=== PATIENT | female | born 1975 | race American Indian/Alaskan Native ===

== ENCOUNTER 2018-10-27 09:29 | Emergency (ER) | payer SELFPAY ==
[2018-10-27] MEDS ORDERED: TORADOL IM ONE (11:03)
--- NOTE | 2018-10-27 11:06 | Emergency Department Report ---
ED Back Pain/Injury HPI - General Chief Complaint: Pain General Stated Complaint: LT SIDE PAIN/TOOTHACHE Time Seen by Provider: 10/27/18 10:43 Source: patient Limitations: No Limitations - History of Present Illness Initial Comments: Ms. Manning is a 42 yo female with hx of HTN and asthma who presents with toothache from fracture tooth at the left upper front of mouth. She has has left flank pain. Worse with movement. Worse with laying on the region. No fever. No dyspnea. Works at [employer]. MD Complaint: back pain -: Gradual, days(s) (1) Similar Symptoms Previously: No Radiation: none Severity: moderate Quality: dull, aching Consistency: constant Worsens With: movement - Related Data Previous Rx's Medication Instructions Recorded Last Taken Type Cyclobenzaprine [Flexeril] 10 mg PO TID PRN #20 tablet 10/27/18 Unknown Rx HYDROcodone/APAP 5-325 [[place] 1 each PO Q6HR PRN #10 tablet 10/27/18 Unknown Rx 5/325] Ibuprofen [Motrin 800 MG tab] 800 mg PO TID 5 Days #15 tablet 10/27/18 Unknown Rx Penicillin V Potassium 500 mg PO TID 7 Days #21 tablet 10/27/18 Unknown Rx Allergies Allergy/AdvReac Type Severity Reaction Status Date / Time mushroom Allergy Hives Verified 10/27/18 09:32 ED Review of Systems ROS: Stated complaint: LT SIDE PAIN/TOOTHACHE Other details as noted in HPI Comment: All other systems reviewed and negative Constitutional: denies: fever, malaise Cardiovascular: denies: chest pain ED Past Medical Hx - Past Medical History Previous Medical History?: Yes Hx Hypertension: Yes Hx Liver Disease: Yes Hx Asthma: Yes - Surgical History Additional Surgical History: tubal ligation, lumpectomy - Social History Smoking Status: Current Every Day Smoker Substance Use Type: None - Medications Home Medications: Home Medications Medication Instructions Recorded Confirmed Last Taken Type Cyclobenzaprine [Flexeril] 10 mg PO TID PRN #20 tablet 10/27/18 Unknown Rx HYDROcodone/APAP 5-325 [[place] 1 each PO Q6HR PRN #10 tablet 10/27/18 Unknown Rx 5/325] Ibuprofen [Motrin 800 MG tab] 800 mg PO TID 5 Days #15 tablet 10/27/18 Unknown Rx Penicillin V Potassium 500 mg PO TID 7 Days #21 tablet 10/27/18 Unknown Rx ED Physical Exam - General Limitations: No Limitations General appearance: alert, in no apparent distress - Head Head exam: Present: atraumatic, normocephalic - Eye Eye exam: Present: normal appearance - ENT ENT exam: Present: mucous membranes moist - Neck Neck exam: Present: normal inspection, full ROM - Respiratory Respiratory exam: Present: normal lung sounds bilaterally. Absent: respiratory distress, wheezes, rales, rhonchi - Cardiovascular Cardiovascular Exam: Present: regular rate, normal rhythm, normal heart sounds. Absent: systolic murmur, diastolic murmur, rubs, gallop - GI/Abdominal GI/Abdominal exam: Present: soft, normal bowel sounds. Absent: distended, guarding, rebound - Extremities Exam Extremities exam: Present: normal inspection - Back Exam Back exam: Present: normal inspection - Neurological Exam Neurological exam: Present: alert, oriented X3 - Psychiatric Psychiatric exam: Present: normal affect, normal mood - Skin Skin exam: Present: warm, dry, intact, normal color. Absent: rash ED Course Vital Signs 10/27/18 09:37 Temperature 98.9 F Pulse Rate 117 H Respiratory 18 Rate Blood Pressure 185/97 O2 Sat by Pulse 95 Oximetry ED Medical Decision Making - Lab Data Result diagrams: 10/27/18 11:09 10/27/18 11:09 - Radiology Data Radiology results: report reviewed interpreted by me: VQ scan low probability for pulmonary embolism - Medical Decision Making Mrs. Manning presents with toothache due to fracture and cavity. No evidence of dental abscess or facial cellulitis. As a precaution will provide empiric antibiotic therapy with penicillin. Musculoskeletal back pain left pain due to new job. 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 Prescribed [place] ibuprofen Flexeril Critical care attestation.: If time is entered above; I have spent that time in minutes in the direct care of this critically ill patient, excluding procedure time. ED Disposition Clinical Impression: Dental caries, Musculoskeletal back pain Disposition: DC- TO HOME OR SELFCARE Is pt being admited?: No Does the pt Need Aspirin: No Condition: Stable Instructions: Low Back Strain (ED), Toothache (ED) Prescriptions: Cyclobenzaprine [Flexeril] 10 mg PO TID PRN #20 tablet PRN Reason: Muscle Spasm Ibuprofen [Motrin 800 MG tab] 800 mg PO TID 5 Days #15 tablet HYDROcodone/APAP 5-325 [[place] 5/325] 1 each PO Q6HR PRN #10 tablet PRN Reason: Pain Penicillin V Potassium 500 mg PO TID 7 Days #21 tablet Referrals: YASH CERVANTES MD [Primary Care Provider] - 3-5 Days
[2018-10-27 11:23] LABS: Bilirubin,Urine SM (Negative); Blood,Urine NEG (Negative); Calcium Oxalate Crystals,Urine 1+; Color,Urine Amber (Yellow); Mucus,Urine 3+ /HPF
[2018-10-27 11:32] LABS: Hematocrit 33.1 % (30.3-42.9); Hemoglobin 10.6 gm/dl (10.1-14.3); Mean Corpuscular HGB Conc 32 % (30-34); Platelet Count 342 K/mm3 (140-440)
[2018-10-27 11:35] LABS: Mean Corpuscular Volume 68 fl (79-97); Red Cell Distribution Width 24.1 % (13.2-15.2)
[2018-10-27 11:41] LABS: Ictotest,Urine Negative (Negative)
--- NOTE | 2018-10-27 11:46 | XRay Report ---
CHEST 2 VIEWS INDICATION: Left back pain, left flank pain for 3 days. COMPARISON: FINDINGS: Support devices: None. Heart: Within normal limits. Lungs/pleura: No acute air space or interstitial disease. No pneumothorax. Additional findings: Minimal thoracic spondylosis. No acute fractures appreciated. IMPRESSION: Unremarkable chest films. Minimal thoracic spondylosis. Signer Name: Silvino Mina Jr, MD Signed: 10/27/2018 11:42 AM Workstation Name: [id number]
[2018-10-27 11:49] LABS: BUN/Creatinine Ratio 17; Blood Urea Nitrogen 10 mg/dL (7-17); Calcium 9.5 mg/dL (8.4-10.2); Hemolysis Index 0
[2018-10-27 12:27] LABS: Anisocytosis 2+; Basophils % (Manual) 0 % (0.0-1.8); Total Cells Counted 100
[2018-10-27 12:28] LABS: Hypochromasia 2+; Ovalocytes Few; Platelet Estimate Consistent w Auto; Target Cells 1+
--- NOTE | 2018-10-27 14:30 | Nuclear Medicine Report ---
VENTILATION PERFUSION PULMONARY SCINTIGRAPHY HISTORY: Posterior chest pain, elevated d-dimer, evaluate for pulmonary embolus COMPARISON: 10/27/2018 chest radiograph. TECHNIQUE: Radiopharmaceutical was inhaled. Tc-99m-MAA was then injected. Ventilation and perfusion images were acquired. RADIOPHARMACEUTICAL: 26.7 mCi of Xe-133 inhaled 3.1 mCi of Tc-99m-MAA injected FINDINGS: VENTILATION: No significant air trapping or defect. PERFUSION: No significant segmental or non-segmental defect. Additional Findings: None. IMPRESSION: 1. Low probability for pulmonary embolism. Signer Name: Silvino Mina Jr, MD Signed: 10/27/2018 2:25 PM Workstation Name: [id number]
[2018-10-27 16:32] VITALS: BP 168/92
== END 2018-10-27 16:20 | disposition home or self-care (01) ==
LOC: ED 09:29
DX: K02.9 Dental caries, unspecified (principal); M54.9 Dorsalgia, unspecified; I10 Essential (primary) hypertension; J45.909 Unspecified asthma, uncomplicated; F17.200 Nicotine dependence, unspecified, uncomplicated; Z98.51 Tubal ligation status
CPT/HCPCS: 36415; 71046; 78582; 80048; 81001; 85007; 85025; 85379; 96372; 99284; A9540; A9558; J1885

== ENCOUNTER 2019-02-06 18:21 | Emergency (ER) | payer SELFPAY ==
[2019-02-06 19:06] VITALS: BP 225/106
--- NOTE | 2019-02-06 19:07 | Event Note ---
ED Screening Note Date of service: 02/06/19 Time: 19:02 ED Screening Note: This is a 43 y.o. F. that presents to the ER with right hip pain and right sided neck pain s/p fall 2 days ago. Patient states she slipped on the steps outside of her apartment. Not sure of which step she was on. PMH of HTN LMP 02/06/2019 This initial assessment/diagnostic orders/clinical plan/treatment(s) is/are subject to change based on patients health status, clinical progression and re- assessment by fellow clinical providers in the ED. Further treatment and workup at subsequent clinical providers discretion. Patient/guardian urged not to elope from the ED as their condition may be serious if not clinically assessed and managed. Initial orders include: XR right hip
--- NOTE | 2019-02-06 19:58 | XRay Report ---
RIGHT HIP 2 VIEWS INDICATION / CLINICAL INFORMATION: hip pain s/p fall COMPARISON: None available. FINDINGS: BONES / JOINT(S): No acute fracture or subluxation. No significant arthritis. SOFT TISSUES: No significant abnormality. ADDITIONAL FINDINGS: None. Signer Name: Marques Saldaña MD Signed: 02/06/2019 7:54 PM Workstation Name: [id number]
--- NOTE | 2019-02-06 20:59 | Emergency Department Report ---
ED Neck Pain/Injury HPI - General Chief Complaint: Neck Pain/Injury Stated Complaint: SIDE/NECK PAIN Time Seen by Provider: 02/06/19 19:02 Mode of arrival: Ambulatory Limitations: No Limitations - History of Present Illness Initial Comments: 43-year-old female with history of hypertension presents to ED with painful knot behind her right ear times one day. Patient states pain is radiating upward, causing a headache. Patient denies ear pain or scalp infection. Denies sore throat. She reports mild toothache. Denies fever, nausea, vomiting. Patient also states she fell onto her right hip 2 days ago and reports pain from that. Patient did not hit her head at that time. Blood pressure is currently elevated. Patient reports she did not take her blood pressure medicine today, however, assures that she will take it when she gets home. MD Complaint: neck pain -: This morning Radiation: head Severity: moderate Quality: aching Consistency: constant Improves With: immobilization Worsens With: movement of neck, other (palpation) Associated Symptoms: denies: fever Treatments Prior to Arrival: none - Related Data Previous Rx's Medication Instructions Recorded Last Taken Type Cyclobenzaprine [Flexeril] 10 mg PO TID PRN #20 tablet 10/27/18 Unknown Rx HYDROcodone/APAP 5-325 [[place] 1 each PO Q6HR PRN #10 tablet 10/27/18 Unknown Rx 5/325] Ibuprofen [Motrin 800 MG tab] 800 mg PO TID 5 Days #15 tablet 10/27/18 Unknown Rx Penicillin V Potassium 500 mg PO TID 7 Days #21 tablet 10/27/18 Unknown Rx Naproxen [Naprosyn] 500 mg PO BID #20 tablet 02/06/19 Unknown Rx cephALEXin [Keflex] 500 mg PO Q12HR 5 Days #10 cap 02/06/19 Unknown Rx Allergies Allergy/AdvReac Type Severity Reaction Status Date / Time mushroom Allergy Hives Verified 10/27/18 09:32 ED Review of Systems ROS: Stated complaint: SIDE/NECK PAIN Other details as noted in HPI Comment: All other systems reviewed and negative Constitutional: denies: chills, fever ENT: dental pain. denies: ear pain, throat pain Respiratory: denies: cough Gastrointestinal: denies: nausea, vomiting Musculoskeletal: as per HPI Neurological: headache ED Past Medical Hx - Past Medical History Previous Medical History?: Yes Hx Hypertension: Yes Hx Liver Disease: Yes Hx Asthma: Yes - Surgical History Past Surgical History?: Yes Hx Cholecystectomy: Yes Additional Surgical History: tubal ligation, lumpectomy - Social History Smoking Status: Current Every Day Smoker Substance Use Type: None - Medications Home Medications: Home Medications Medication Instructions Recorded Confirmed Last Taken Type Cyclobenzaprine [Flexeril] 10 mg PO TID PRN #20 tablet 10/27/18 Unknown Rx HYDROcodone/APAP 5-325 [[place] 1 each PO Q6HR PRN #10 tablet 10/27/18 Unknown Rx 5/325] Ibuprofen [Motrin 800 MG tab] 800 mg PO TID 5 Days #15 tablet 10/27/18 Unknown Rx Penicillin V Potassium 500 mg PO TID 7 Days #21 tablet 10/27/18 Unknown Rx Naproxen [Naprosyn] 500 mg PO BID #20 tablet 02/06/19 Unknown Rx cephALEXin [Keflex] 500 mg PO Q12HR 5 Days #10 cap 02/06/19 Unknown Rx ED Physical Exam - General Limitations: No Limitations General appearance: alert, in no apparent distress - Head Head exam: Present: atraumatic, normocephalic - Eye Eye exam: Present: normal appearance, EOMI - ENT ENT exam: Present: normal orophraynx, mucous membranes moist, TM's normal bilaterally - Neck Neck exam: Present: normal inspection, other (right postauricular tender lymph node present) - Respiratory Respiratory exam: Present: normal lung sounds bilaterally. Absent: respiratory distress - Cardiovascular Cardiovascular Exam: Present: regular rate, normal rhythm - GI/Abdominal GI/Abdominal exam: Absent: distended - Extremities Exam Extremities exam: Present: normal inspection - Neurological Exam Neurological exam: Present: alert, oriented X3 - Psychiatric Psychiatric exam: Present: normal affect, normal mood - Skin Skin exam: Present: warm, dry, intact, normal color ED Course Vital Signs 02/06/19 19:00 Temperature 98.6 F Pulse Rate 82 Respiratory 14 Rate Blood Pressure 225/106 O2 Sat by Pulse 97 Oximetry Critical care attestation.: If time is entered above; I have spent that time in minutes in the direct care of this critically ill patient, excluding procedure time. ED Disposition Clinical Impression: Lymphadenitis, acute Disposition: DC-01 TO HOME OR SELFCARE Is pt being admited?: No Condition: Stable Instructions: Lymphadenopathy (ED) Referrals: [facility] [Provider Group] - 3-5 Days Time of Disposition: 20:59
== END 2019-02-06 21:14 | disposition home or self-care (01) ==
LOC: ED 18:21
DX: L04.9 Acute lymphadenitis, unspecified (principal); I10 Essential (primary) hypertension; F17.200 Nicotine dependence, unspecified, uncomplicated; J45.909 Unspecified asthma, uncomplicated; Z90.49 Acquired absence of other specified parts of digestive tract; Z98.51 Tubal ligation status; Z91.018 Allergy to other foods; Z79.899 Other long term (current) drug therapy